=== PATIENT | female | born 1995 | race Caucasian/White ===

== ENCOUNTER 2025-02-04 12:46 | Observation (INO) | payer OTHER ==
[2025-02-04] MEDS ORDERED: Sodium Chloride 0.9% 10 ML Syringe FLUSH PRN (14:31)
[2025-02-04] MEDS ORDERED: Sodium Chloride 0.9% 2.5 ML Syringe FLUSH PRN (14:31)
[2025-02-04] MEDS ORDERED: Butorphanol 1 MG/ML SDV IVPUSH PRN (14:31)
[2025-02-04] MEDS ORDERED: Carboprost Tromethamine 250 MCG/1 mL Vial IM PRN (14:31)
[2025-02-04] MEDS ORDERED: Water For Irrigation,Sterile 1,000 ML Container IRR PRN (14:31)
[2025-02-04] MEDS ORDERED: Oxytocin/0.9 % Sodium Chloride 30 UNIT/500 ML BAG IV SCH (14:45)
[2025-02-04 14:58] LABS: MEAN PLATELET VOLUME 11.8 fL (9.4-12.3); NRBC ABSOLUTE 0.00 K/uL (0.00-0.02); NRBC PERCENT 0.0 /100WBC (0.0-0.2); PLATELET COUNT,PLT 164 K/uL (150-400); RED BLOOD CELL COUNT 4.86 M/uL (4.10-5.30); WHITE BLOOD CELL COUNT,WBC 10.46 K/uL (3.9-11.3)
[2025-02-04 15:00] LABS: APPEARANCE,URINE SLT CLOUDY; GLUCOSE,URINE NEGATIVE (NEGATIVE); OCCULT BLOOD,URINE SMALL (NEGATIVE)
[2025-02-04] MEDS: Lactated Ringers 1,000 ML IV SCH (15:28)
[2025-02-04 15:31] LABS: A/G RATIO 0.5 (0.9-1.6); ALANINE AMINOTRANSFERASE,ALT 12.0 IU/L (14-63); ASPARTATE AMNIOTRANSFERASE,AST 20.0 IU/L (15-37); BILIRUBIN TOTAL 0.2 mg/dL (0.2-1.0); BLOOD UREA NITROGEN,BUN 8.0 mg/dL (7.0-18.0); CARBON DIOXIDE,CO2 21.4 mmol/L (21.0-32.0); CHLORIDE,CL 106.0 mmol/L (98-107); CREATININE 1.0 mg/dL (0.6-1.0); EST CRCL DRUG DOSING (CG) 79.99 mL/min; GLUCOSE RANDOM 79.0 mg/dL (74-106); POTASSIUM,K 4.3 mmol/L (3.5-5.1); PROTEIN TOTAL,TP 6.9 g/dL (6.4-8.2); SODIUM,NA 140.0 mmol/L (136-145)
[2025-02-04 15:33] LABS: EPITHELIAL CELLS,URINE MODERATE (NONE-FEW)
[2025-02-04 15:40] LABS: ESTIMATED GFR 78.0 mL/min (>60)
== END 2025-02-04 19:10 ==
LOC: MW.OBCHECK 12:46 → MW.OB 12:56 → MW.OBCHECK 14:39
PROVIDERS: ADMIT Obstetrics & Gynecology; ATTEND Obstetrics & Gynecology
DX: O42.013 Preterm premature rupture of membranes, onset of labor within 24 hours of rupture, third trimester (principal); O99.820 Streptococcus B carrier state complicating pregnancy; O99.213 Obesity complicating pregnancy, third trimester; E66.01 Morbid (severe) obesity due to excess calories; Z3A.36 36 weeks gestation of pregnancy
CPT/HCPCS: 36415; 59025; 80053; 81001; 84112; 84550; 85027; 86592; 86850; 86900; 86901; J0290; J7120; G0378